=== PATIENT | male | born 1955 | race Caucasian/White ===

== ENCOUNTER 2022-11-29 13:55 | Outpatient (REF) | payer MEDICARE, OTHER, SELFPAY ==
--- NOTE | ~2022-11-29 | XR_ITS ---
EXAMINATION: XR PELVIS CLINICAL INFORMATION: Sacrococcygeal disorders. COMPARISON: None available. TECHNIQUE: AP view of the pelvis. FINDINGS: Status post right total hip arthroplasty which appears intact. No evidence for displaced pelvic fracture. There may be transitional anatomy at L5 with partial sacralization of L5 on the left. The sacroiliac joints appear intact. There are vascular calcifications. XR/XR pelvis min 3V IMPRESSION: 1. Status post right total hip arthroplasty which appears intact. 2. No evidence for displaced pelvic fracture. 3. There may be transitional anatomy at L5 with partial sacralization of L5 on the left.
--- NOTE | ~2022-11-29 | XR_ITS ---
EXAMINATION: XR HIP, RIGHT CLINICAL INFORMATION: Sacrococcygeal disorder. COMPARISON: None available. TECHNIQUE: Two views of the right hip. FINDINGS: Prosthetic components of the right total hip arthroplasty are appropriately aligned without periprosthetic fracture or abnormal lucency. No component migration. Soft tissues are normal. Vascular calcifications. XR/XR hip RT min 2V IMPRESSION: Appropriate alignment of the right total hip arthroplasty without surrounding abnormalities.
== END 2022-11-29 13:56 | disposition home or self-care (01) ==
LOC: HO.HOSX 13:55
PROVIDERS: PCP Family Medicine; Visit Provider Physician Assistant
DX: M53.3 Sacrococcygeal disorders, not elsewhere classified (principal); G89.29 Other chronic pain
CPT/HCPCS: 72170; 72190; 73502; 99212

== ENCOUNTER 2022-11-29 14:02 | Outpatient (AMB) | payer MEDICARE, OTHER, SELFPAY ==
--- NOTE | 2022-11-29 14:05 | HO.SPINEOV ---
Intake Intake Visit Reasons: to discuss surgery Intake Note: Mr. Monsivais is here today to discuss surgery. Assessment & Plan Assessment & Plan (1) Chronic SI joint pain: Code(s): M53.3 - Sacrococcygeal disorders, not elsewhere classified; G89.29 - Other chronic pain Plan Mr Monsivais the office to see us, we had seen him last year for evaluation of SI joint pain on the right side and considered him a good candidate for fusion after a very positive response to SI joint injection by Dr. Staton. Unfortunately he fell and fractured his hip over the winter and has been recovering from that, he had a gamma nail placed, followed by a total hip arthroplasty after the nails failed. He has mostly recovered from that surgery but is still continuing to have back pain. Today however he states that the back pain is mostly centralized in the lumbar sacral region. It does not seem to be consistent with what we previously discussed at his office visit where was mostly on the right side going down into his thigh. My previous note states that he had a severely collapsed disc at L4-5. I am wondering if his symptomology has not changed over time and he may be dealing with the degenerative disc now with a centralized back pain. I would like to get an updated lumbar MRI just to clarify the situation. I will also get a set of hip x-rays and pelvic x-rays just to get a better understanding of the status of some of the work that was done on his hip in case we have to go across some part of the pelvic bone that was already operated on. I will see him back after the tests are completed. Total amount of time spent in this visit was 20 minutes in discussion of symptoms, ordering lumbar imaging and subsequent plan of care Juan Fraire MD,PhD [facility] Orders: Orders MR lumbar spine wo con Today G89.29 - Other chronic pain, M53.3 - Sacrococcygeal disorders, not elsewhere classified XR hip RT min 2V Today G89.29 - Other chronic pain, M53.3 - Sacrococcygeal disorders, not elsewhere classified XR pelvis min 3V Today G89.29 - Other chronic pain, M53.3 - Sacrococcygeal disorders, not elsewhere classified Coding Level of Care Code Est Pt Level 3 (54325) Diagnoses Chronic SI joint pain M53.3; G89.29
== END 2022-11-29 15:45 | disposition home or self-care (01) ==
PROVIDERS: PCP Family Medicine; Visit Provider Physician Assistant
DX: M53.3 Sacrococcygeal disorders, not elsewhere classified (principal); G89.29 Other chronic pain
CPT/HCPCS: 99213

== ENCOUNTER 2023-01-10 08:11 | Outpatient (REF) | payer MEDICARE, OTHER, SELFPAY ==
--- NOTE | ~2023-01-10 | MR_ITS ---
EXAMINATION: MR LUMBAR SPINE WITHOUT CONTRAST CLINICAL INFORMATION: Low back pain. COMPARISON: No relevant prior imaging. TECHNIQUE: MRI of the lumbar spine was obtained using routine sequences without contrast. FINDINGS: Alignment is normal. Vertebral body heights are preserved. There are mixed degenerative endplate changes at L3-L4 and L4-L5. There is loss of intervertebral disc height and T2 signal intensity at multiple levels related to disc degeneration. The tip of the conus medullaris is located at L1. No mass effect on the conus. Visualized distal cord signal intensity is normal. At L1-L2 the annular contour is normal. No canal stenosis. No mass effect on the traversing or foraminal nerve roots. At L2-L3 there is a shallow right subarticular protrusion superimposed upon a bulging disc. Bilateral facet degenerative change. Mild canal stenosis. Partial effacement of the perineural fat without overt compression of the L2 foraminal nerve roots. At L3-L4 there is a diffusely bulging disc. Bilateral facet degenerative change. No canal stenosis. Mild mass effect on both L3 foraminal nerve roots. At L4-L5 there is a left subarticular extrusion superimposed upon a bulging disc with 0.6 cm superior subligamentous extension of extruded disc material. No canal stenosis. Mild mass effect on both L4 foraminal nerve roots. At L5-S1 the annular contour is normal. No canal stenosis. No mass effect on the traversing or foraminal nerve roots. Limited visualization of the retroperitoneal anatomy reveals no abnormal finding. Psoas and paraspinal muscle groups are symmetric. MR/MR lumbar spine wo con IMPRESSION: There is multilevel degenerative spondylosis of the lumbar spine. Mild canal stenosis at L2-L3. Otherwise no canal compromise. There is mild mass effect on both L3 and both L4 foraminal nerve roots related to degenerative changes at L3-L4 and L4-L5 respectively.
== END 2023-01-10 08:12 | disposition home or self-care (01) ==
LOC: HO.MRI 08:11
PROVIDERS: PCP Family Medicine; Visit Provider Physician Assistant
DX: G89.29 Other chronic pain (principal); M53.3 Sacrococcygeal disorders, not elsewhere classified
CPT/HCPCS: 72148

== ENCOUNTER 2023-01-24 14:49 | Outpatient (AMB) | payer MEDICARE, OTHER, SELFPAY ==
--- NOTE | 2023-01-24 16:08 | A.SPINEOV_ITS ---
Intake Intake Visit Reasons: MRI follow up Intake Note: Mr. Monsivais is here today for discuss his MRI results. Clerical Grader Required: No Assessment & Plan Assessment & Plan (1) Chronic SI joint pain: Code(s): M53.3 - Sacrococcygeal disorders, not elsewhere classified; G89.29 - Other chronic pain Plan Dear Dr Staton, Mr Monsivais came back to the office today for a follow-up visit. We had evaluated him previously for right SI joint instability with good relief for 24 hours after injection done at your office. He had a complicated issue with his right hip that ultimately ended up requiring replacement and that delayed his SI joint fusion. We did a lumbar MRI at [place] to establish any level of baseline disease that could correlate to his back pain and indeed he has a severely collapsed if not [id number] disc degeneration at L3-4 and L4-5. He localizes a lot of his pain over the lumbar region and not necessarily out to the SI joint on the right side. However, because of the excellent relief for 24 hours with the injection, we certainly could have an overlapping diagnosis of degenerative disc disease and SI joint pathology together. Typically we would require two injections to confirm the diagnosis of SI joint pathology, I will refer him back to your office for another injection and if he gets the same results we can proceed with a right SI joint fusion. Total amount of time spent in this visit was 20 minutes in discussion of symptoms, lumbar MRI imaging results and subsequent plan of care Juan Fraire MD,PhD [facility] Orders: Referrals Physiatry Referral G89.29 - Other chronic pain, M53.3 - Sacrococcygeal disorders, not elsewhere classified Coding Level of Care Code Est Pt Level 3 (73025) Diagnoses Chronic SI joint pain M53.3; G89.29
== END 2023-01-24 16:39 | disposition home or self-care (01) ==
PROVIDERS: PCP Family Medicine; Visit Provider Physician Assistant
DX: M53.3 Sacrococcygeal disorders, not elsewhere classified (principal); G89.29 Other chronic pain
CPT/HCPCS: 99213

== ENCOUNTER → 2023-01-24 14:49 | Outpatient (BNVA) | payer MEDICARE, OTHER, SELFPAY | PROVIDERS: PCP Family Medicine; Visit Provider Physician Assistant | DX: M53.3 Sacrococcygeal disorders, not elsewhere classified (principal); G89.29 Other chronic pain | CPT/HCPCS: 99212 ==